=== PATIENT | male | born 1970 | race Caucasian/White ===

== ENCOUNTER → 2024-02-19 13:34 | Outpatient (REF) | payer BC, SELFPAY | LOC: RAD 13:34 | PROVIDERS: ATTENDING PHYSICIAN Nurse Practitioner | DX: R05.1 Acute cough (principal); Z72.0 Tobacco use | CPT/HCPCS: 71046 ==

== ENCOUNTER → 2024-06-23 22:00 | Outpatient (REF) | payer BC, SELFPAY | LOC: DHSLP 22:00 | PROVIDERS: ATTENDING PHYSICIAN Internal Medicine; FAMILY PHYSICIAN Nurse Practitioner | DX: G47.33 Obstructive sleep apnea (adult) (pediatric) (principal) | CPT/HCPCS: 95800 ==

== ENCOUNTER 2024-07-29 06:23 | Day surgery (SDC) | payer BC, SELFPAY ==
[2024-07-15 08:44] LABS: Hematocrit 42.8 % (39.0-52.0); Hemoglobin 14.5 g/dL (13.0-18.0); Mean Corp Hgb Conc. 33.9 g/dL (33.0-37.0); Mean Corpuscular Hgb 30.1 pg (27.0-31.0); Platelet Count 219 10^3/uL (130-400); Red Blood Cell Count 4.81 10^6/uL (4.70-6.10); White Blood Cell Count 11.3 10^3/uL (4.8-10.8)
[2024-07-15 09:12] LABS: Blood Urea Nitrogen 14 mg/dl (9-20); Calcium 8.9 mg/dl (8.4-10.2); Carbon Dioxide 26 mmol/L (22-30); Chloride 105 mmol/L (98-107); Glucose 106 mg/dl (70-99); Potassium 4.7 mmol/L (3.5-5.1); Sodium 143 mmol/L (135-145); eGFR > 60.00
[2024-07-15 10:36] VITALS: BMI 30.9
[2024-07-29] VITALS (9 sets, daily range): BP systolic 123–137; BP diastolic 80–95; BMI 30.9
[2024-07-29] MEDS: TYLENOL 1000 MG PO (11:24)
[2024-07-29] MEDS: DILAUDID 0.5 MG IV ×2 (13:51→14:05)
[2024-07-29] MEDS: ROXICODONE 5 MG PO (14:56)
== END 2024-07-29 15:20 | disposition home or self-care (01) ==
LOC: SDS 06:23
PROVIDERS: ATTENDING PHYSICIAN Surgery; FAMILY PHYSICIAN Nurse Practitioner
DX: K43.2 Incisional hernia without obstruction or gangrene (principal)
CPT/HCPCS: 49591; 36415; 80048; 85027; 93005